=== PATIENT | female | born 1970 | race Caucasian/White ===

== ENCOUNTER → 2019-05-02 | Outpatient (CLI) | payer BC ==
--- NOTE | 2019-05-04 11:38 | MM ---
Reason for exam: screening (asymptomatic). Last mammogram was performed 14 years and 11 months ago. History: Core biopsy of the right breast. Physical Findings: A clinical breast exam by your physician is recommended on an annual basis and results should be correlated with mammographic findings. MG 3D Screening Mammo W/Cad Bilateral CC and MLO view(s) were taken. No prior studies available for comparison. Distortion central upper right breast. ASSESSMENT: Incomplete: need additional imaging evaluation, BI-RAD 0 RECOMMENDATION: Special view mammogram of the right breast. If lesion persists on supplemental views, image directed ultrasound is recommended. [facility] will attempt to contact patient to return for supplemental views and ultrasound if indicated.
== END | disposition home or self-care (01) ==
LOC: RADMAMWWP 16:18
PROVIDERS: ATTEND Family Medicine
DX: Z12.39 Encounter for other screening for malignant neoplasm of breast (principal)
CPT/HCPCS: 77063; 77067

== ENCOUNTER → 2019-05-17 | Outpatient (CLI) | payer BC ==
--- NOTE | 2019-05-21 10:50 | MM ---
Reason for exam: additional evaluation requested from abnormal screening. Last mammogram was performed less than 1 month ago. History: Core biopsy of the right breast. Physical Findings: Nurse did not find any significant physical abnormalities on exam. MG 3D Work Up W/Cad RT Spot compression CC, spot compression MLO, and LM view(s) were taken of the right breast. Prior study comparison: May 02, 2019, bilateral MG 3d screening mammo w/cad. June 04, 2004, bilateral diagnostic mammogram. Spiculation persists right breast 12 o'clock 5.4cm from nipple. These results were verbally communicated with the patient and result sheet given to the patient on 05/17/19. ASSESSMENT: Incomplete: need additional imaging evaluation, BI-RAD 0 RECOMMENDATION: Ultrasound of the right breast.
--- NOTE | 2019-05-21 10:52 | USB ---
Reason for exam: additional evaluation requested from abnormal screening. History: Core biopsy of the right breast. US Breast Workup Limited RT Right limited breast ultrasound including focal area of concern, retroareolar and axilla demonstrates no cystic or solid lesion seen. Very dense tissue. Given mammographic appearance tissue biopsy is recommended. These results were verbally communicated with the patient and result sheet given to the patient on 05/17/19. ASSESSMENT: Suspicious, BI-RAD 4 RECOMMENDATION: Stereotactic core biopsy of the right breast. Called Dr. Osullivan's office with mammographic findings. Biopsy scheduled for 05/25/19 at 10:20. PRELIMINARY REPORT CALLED AND FAXED TO DR. OSULLIVAN ON 05/21/19.
== END | disposition home or self-care (01) ==
LOC: RADMAMWWP 14:16
PROVIDERS: ATTEND Family Medicine
DX: R92.8 Other abnormal and inconclusive findings on diagnostic imaging of breast (principal)
CPT/HCPCS: 77061; 77065

== ENCOUNTER → 2019-05-25 | Day surgery (SDC) | payer BC ==
[2019-05-25 09:33] VITALS: RESP 16; TEMP 97.9
[2019-05-25 11:14] VITALS: BP 123/77; PULSE 84
--- NOTE | 2019-05-28 08:46 | MM ---
Stereotactic Mammotome core biopsy right breast. HISTORY: Right breast distortion. Patient has a history of previous mastoiditis. Rule out invasive ductal carcinoma. The area of distortion in question within the right breast were targeted by the undersigned. Procedure was performed by the undersigned. Informed consent was obtained and all of the patients questions were answered. The standard sterile technique was utilized and appropriate local anesthesia was obtained with 1% lidocaine. Deep anesthesia was obtained with 1% lidocaine and epinephrine. Mammotome probe was advanced and multiple core samples were obtained and sent to pathology for interpretation. Microclip marker was deployed at the site of biopsy. Post procedural mammogram demonstrates appropriate deployment of radiopaque clip marker. The patient tolerated the procedure well and left the department in stable condition. Pathology results are pending. IMPRESSION: Successful stereotactic core biopsy right breast with pathology results pending. Pathology Results: High Risk RIGHT BREAST, STEREOTACTIC CORE BIOPSY: Fibrocystic change with features of "radial scar" and focal atypical ductal hyperplasia (see comment). Recommendation Surgical consult of the right breast. [facility]
== END ==
LOC: RADMAMWWP 09:13
PROVIDERS: ATTEND Family Medicine
DX: N64.89 Other specified disorders of breast (principal); N60.11 Diffuse cystic mastopathy of right breast; N62 Hypertrophy of breast; F41.9 Anxiety disorder, unspecified
CPT/HCPCS: 88305; 19081; A4648; J2001

== ENCOUNTER → 2019-12-24 | Outpatient (CLI) | payer BC ==
--- NOTE | 2019-12-24 10:55 | MM ---
Reason for exam: follow-up at short interval from prior study. Last mammogram was performed 7 months ago. History: Patient has history of high-risk lesion on a previous biopsy at age 49. High risk MG stereo VAD BX RT of the right breast, May 25, 2019. Lumpectomy of the right breast, June 2018. Core biopsy of the right breast. Physical Findings: Nurse did not find any significant physical abnormalities on exam. MG 3D Diag Mammo W/Cad RT CC, MLO, and XCCL view(s) were taken of the right breast. Prior study comparison: May 17, 2019, right breast MG 3d work up w/cad RT. May 02, 2019, bilateral MG 3d screening mammo w/cad. The breast tissue is heterogeneously dense. This may lower the sensitivity of mammography. No significant new findings when compared with previous films. These results were verbally communicated with the patient and result sheet given to the patient on 12/24/19. ASSESSMENT: Benign, BI-RAD 2 RECOMMENDATION: Return to routine screening mammogram schedule for both breasts. Back on schedule for April 2020.
== END | disposition home or self-care (01) ==
LOC: RADMAMWWP 10:07
PROVIDERS: ATTEND Family Medicine
DX: R92.8 Other abnormal and inconclusive findings on diagnostic imaging of breast (principal)
CPT/HCPCS: 77061; 77065

== ENCOUNTER → 2020-01-07 | Outpatient (CLI) | payer BC | LOC: LABWHC1 07:56 | PROVIDERS: ATTEND Surgery | DX: Z48.22 Encounter for aftercare following kidney transplant (principal); Z52.4 Kidney donor | CPT/HCPCS: U0003; C9803 ==

== ENCOUNTER → 2020-03-14 | Outpatient (CLI) | payer BC | END | disposition home or self-care (01) | LOC: LABWHC1 10:21 | PROVIDERS: ATTEND Internal Medicine | DX: Z01.812 Encounter for preprocedural laboratory examination (principal); Z20.828 Contact with and (suspected) exposure to other viral communicable diseases | CPT/HCPCS: U0003; C9803 ==